=== PATIENT | female | born 2005 | race African-American/Black ===

== ENCOUNTER 2025-03-01 17:05 | Outpatient (CLI) | payer OTHER, SELFPAY | END 2025-03-01 17:06 | disposition home or self-care (01) | LOC: AMB 03-02 13:21 | PROVIDERS: Visit Provider Emergency Medicine Emergency Medical Services | DX: S29.9XXA Unspecified injury of thorax, initial encounter (principal); V49.9XXA Car occupant (driver) (passenger) injured in unspecified traffic accident, initial encounter; Y92.410 Unspecified street and highway as the place of occurrence of the external cause | CPT/HCPCS: A0998 ==